=== PATIENT | female | born 1975 | race Caucasian/White ===

== ENCOUNTER 2024-05-25 10:06 | Day surgery (SDC) | payer OTHER ==
[~2024-05-25] VITALS: Ht 172.7 cm; Wt 85.0 kg
[~2024-05-25 10:06] MED LIST: Lactated Ringer's 1,000 ML IV ONE; Lidocaine 2% 5 ML SDV ONE; Lidocaine HCl/Pf 1% 5 ML VIAL ONE; propofoL 50 ML IV ONE
[2024-05-25] MEDS ORDERED: LOSARTAN POTAS100 MG (10:32)
[2024-05-25] MEDS ORDERED: Lactated Ringer's 1,000 ML IV ONE (11:23)
[2024-05-25 12:16] VITALS: BP 125/77
== END 2024-05-25 12:18 | disposition home or self-care (01) ==
LOC: ORSCSDS 10:06
PROVIDERS: Internal Medicine Gastroenterology
PROC: 0DBK8ZX Excision of Ascending Colon, Via Natural or Artificial Opening Endoscopic, Diagnostic (ICD-10-PCS; principal; 2024-05-25 11:15)
DX: R19.4 Change in bowel habit (principal); K62.5 Hemorrhage of anus and rectum; Z86.0100 Personal history of colon polyps, unspecified; Z83.719 Family history of colon polyps, unspecified; K64.4 Residual hemorrhoidal skin tags; D12.2 Benign neoplasm of ascending colon; K21.9 Gastro-esophageal reflux disease without esophagitis; I10 Essential (primary) hypertension; E78.5 Hyperlipidemia, unspecified; F41.9 Anxiety disorder, unspecified; Z79.899 Other long term (current) drug therapy
CPT/HCPCS: 88305; J2003; J2704; J7120

== ENCOUNTER 2025-07-17 20:23 | Emergency (ER) | payer OTHER ==
[~2025-07-17] VITALS: Ht 172.7 cm; Wt 86.2 kg
[~2025-07-17 20:23] MED LIST changes: +LOSARTAN POTAS100 MG; -Lactated Ringer's 1,000 ML IV ONE; -Lidocaine 2% 5 ML SDV ONE; -Lidocaine HCl/Pf 1% 5 ML VIAL ONE; -propofoL 50 ML IV ONE
[2025-07-17 20:28] VITALS: BP 177/94
[2025-07-17] MEDS ORDERED: Ketorolac Tromethamine 15mg Vial IV ONE (21:25)
[2025-07-17] MEDS ORDERED: NS 1,000 ML IV SCH (21:30)
[2025-07-17] MEDS ORDERED: DiphenhydrAMINE HCl 50 MG/ML 1ML Vial IV ONE (21:30)
[2025-07-17] MEDS ORDERED: Prochlorperazine Edisylate 10 mg Vial IV ONE (21:30)
== END 2025-07-17 22:44 | disposition home or self-care (01) ==
LOC: ER 20:23
DX: G43.909 Migraine, unspecified, not intractable, without status migrainosus (principal); Z88.8 Allergy status to other drugs, medicaments and biological substances; Z79.899 Other long term (current) drug therapy; Z90.710 Acquired absence of both cervix and uterus
CPT/HCPCS: 96374; 96375; 99282-25; J0780; J1200; J1885; J7030